=== PATIENT | male | born 1960 | race Caucasian/White ===

== ENCOUNTER → 2017-01-30 | Outpatient (CLI) | payer OTHER ==
[~2017-01-30] MED LIST: APAP500 PO; ASPIR 8181 MG PO; ASPIRIN EC81 M1 OR; CALCIUM CITRAT1 EA19 PO; CENTRUM SILVER1 EAC2 PO; CENTRUM TABLET1 TAB OR; FISH OIL 1,001000 M2 PO; FISHOIL OR; IBUPROFEN 800800 MG PO; KEFLEX500 MG PO; LIPITOR 20 MG T20 M1 PO; LORTAB 5 MG/5001 TA1 PO; MULTIPLE VITAM1 EAC3 PO; NORCO 5-325 TA1 EACH PO; SYNTHROID PO; TUMS CHEWA500 MG/11 PO; VITAMIN D3400 UNIT PO
--- NOTE | ~2017-01-30 | EKG ---
[address] [address] ELECTROCARDIOGRAM REPORT Name: MIGUELINA FORTE [id number] Admission: 01/30/17 Attend Phys: Mickey Baker MD Discharge: Date of : 56 Report #: [id number] THIS REPORT FOR: //name// [facility] Test Date: 2017-01-30 Test Time: 10:52:12 Pat Name: MIGUELINA FORTE Department: Room: Gender: Topographical Drafter: Paramjit MA : 1960 Requested By: Mickey Baker Order Number: [id number] MD: Hamzah Heath Measurements Intervals [place] Rate: 60 P: 30 MI: 151 QRS: 27 QRSD: 96 T: 24 QT: 405 QTc: 405 Interpretive Statements Sinus rhythm No previous ECG available for comparison Electronically Signed On 01-30-2017 16:32:09 UTILITY TECH by Hamzah Heath [email or web address] <ELECTRONICALLY SIGNED> By: Hamzah Heath MD 01/30/17 1632 1052 1052 MD LORETTA Snowden
[2017-01-30 10:35] LABS: ABSOLUTE NEUTROPHILS 5.4 thou/uL (1.4-8.2); EOSINOPHILS 2.6 % (0.0-3.0); HEMATOCRIT 46.8 % (42.0-52.0); HEMOGLOBIN 15.9 gm/dL (14.0-18.0); LYMPHOCYTES 28.5 % (24.0-44.0); MCH 30.4 pg (26.0-34.0); MCV 89.6 fL (80.0-100.0); MONOCYTES 7.5 % (1.0-8.0); PLATELET COUNT 195 thou/uL (150-400); POLYS 60.4 % (36.0-66.0); RBC 5.23 mil/uL (4.50-6.00); RDW 14.3 % (10.5-14.5)
[2017-01-30 10:36] LABS: MANUAL DIFF NO
[2017-01-30 11:51] LABS: CREATININE 0.8 mg/dL (0.6-1.3); POTASSIUM 4.3 mmol/L (3.5-5.1)
[2017-01-30 11:56] LABS: TOTAL BILIRUBIN 0.4 mg/dL (<0.1-1.0); TOTAL PROTEIN 7.5 g/dL (6.4-8.2)
== END ==
LOC: CV 10:15
PROVIDERS: Otolaryngology Plastic Surgery within the Head & Neck
DX: J32.2 Chronic ethmoidal sinusitis (principal); J32.3 Chronic sphenoidal sinusitis; J32.1 Chronic frontal sinusitis; J32.0 Chronic maxillary sinusitis; J34.2 Deviated nasal septum; J34.3 Hypertrophy of nasal turbinates; J33.9 Nasal polyp, unspecified

== ENCOUNTER → 2017-08-08 | Outpatient (CLI) | payer OTHER | LOC: ULTRA 08:48 | DX: C80.1 Malignant (primary) neoplasm, unspecified (principal); E89.0 Postprocedural hypothyroidism; H90.3 Sensorineural hearing loss, bilateral; H93.19 Tinnitus, unspecified ear; Z98.890 Other specified postprocedural states ==